=== PATIENT | female | born 1965 | race Two or more races ===

== ENCOUNTER 2016-04-29 07:06 | Emergency (ER) | payer OTHER ==
[2016-04-29] MEDS ORDERED: IBUPROFEN 800 MG TABLET PO STA (08:12)
[2016-04-29] MEDS ORDERED: IBUPROFEN 800 MG TABLET PO ONE (08:16)
== END 2016-04-29 08:44 | disposition home or self-care (01) ==
DX: R07.81 Pleurodynia (principal); I10 Essential (primary) hypertension; E11.9 Type 2 diabetes mellitus without complications; E78.00 Pure hypercholesterolemia, unspecified
CPT/HCPCS: 71020; 93005; 93010; 99283; 99284; A9270